=== PATIENT | male | born 1970 | race Caucasian/White ===

== ENCOUNTER 2020-04-04 16:36 | Emergency (ER) | payer OTHER ==
[~2020-04-04] VITALS: Ht 182.9 cm; Wt 143.3 kg
[2020-04-04 17:57] LABS: BASOPHILS ABSOLUTE AUTO 0.07 K/mm3 (0.00-0.23); BASOPHILS PERCENT AUTO 1 % (0-2); EOSINOPHILS ABSOLUTE AUTO 0.42 K/mm3 (0.00-0.68); EOSINOPHILS PERCENT AUTO 4 % (0-6); Hematocrit 41.3 % (37.0-53.0); Hemoglobin 13.8 g/dL (13.5-17.5); IMMATURE GRAN ABSOLUTE AUTO 0.03 K/mm3 (0.00-0.10); IMMATURE GRAN PERCENT AUTO 0 % (0-1); LYMPHOCYTES ABSOLUTE AUTO 2.24 K/mm3 (0.84-5.20); LYMPHOCYTES PERCENT AUTO 20 % (21-46); MONOCYTES ABSOLUTE AUTO 0.62 K/mm3 (0.16-1.47); MONOCYTES PERCENT AUTO 6 % (4-13); Mean Corpuscular HGB Conc 33.4 g/dL (31.5-36.5); Mean Corpuscular Volume 87 fL (80-100); Mean Platelet Volume 8.1 fL (9.1-12.4); NEUTROPHILS ABSOLUTE AUTO 7.67 K/mm3 (1.96-9.15); NEUTROPHILS PERCENT AUTO 69 % (41-73); Platelet Count 567 K/mm3 (150-400); RDW Coefficient Variation 13.1 % (11.7-14.2); RDW Standard Deviation 41.1 fL (35.1-46.3); Red Blood Cell Count 4.76 M/mm3 (4.30-5.90); White Blood Cell Count 11.05 K/mm3 (4.00-11.30)
[2020-04-04 18:19] LABS: Alanine Aminotransfer (ALT/SGP 28 U/L (12-78); Albumin, Blood 3.6 g/dL (3.4-5.0); Albumin/Globulin Ratio 0.7 (0.8-1.8); Alk Phos 84 U/L (50-136); Anion Gap 7 mmol/L (6-16); Aspartate Aminotrans (AST/SGOT 15 U/L (12-37); Bilirubin, Total 0.3 mg/dL (0.1-1.0); Blood Urea Nitrogen 20 mg/dL (8-24); Bun/Creatinine Ratio 23.2 (12.0-20.0); CO2, Blood 26 mmol/L (21-32); Chloride, Blood 103 mmol/L (98-108); Creatinine, Blood 0.86 mg/dL (0.60-1.20); Globulin, Blood 5.5 g/dL (2.2-4.0); Glomerular Filtration Rate >60 (60-); Glucose, Blood 170 mg/dL (70-99); Potassium, Blood 4.3 mmol/L (3.5-5.5); Sodium, Blood 136 mmol/L (136-145); Total Protein, Blood 9.1 g/dL (6.4-8.2)
[2020-04-04] MEDS ORDERED: CEPH500 PO (23:49)
[2020-04-04] MEDS ORDERED: METF500 PO (23:51)
[2020-04-04] MEDS ORDERED: BASAGLAR K100 UNIT/1 SC (23:52)
[2020-04-05] MEDS ORDERED: LORA10ER PO (17:20)
[2020-04-05] MEDS ORDERED: FARXIGA5 MG PO (17:21)
[2020-04-05] MEDS ORDERED: Prinivil10 MG (17:21)
[2020-04-05] MEDS ORDERED: Flonase 0.05% N16 GM (17:21)
[2020-04-05] MEDS ORDERED: BUPR150ER PO (17:22)
[2020-04-05] MEDS ORDERED: MONTELUKAST SOD10 MG PO (17:23)
[2020-04-05] MEDS ORDERED: ROSU5 PO (17:24)
[2020-04-05] MEDS ORDERED: TERB250 PO (17:24)
== END 2020-04-05 02:27 | disposition home or self-care (01) ==
LOC: ER 16:36
PROVIDERS: Physician Assistant
DX: L03.115 Cellulitis of right lower limb (principal); E11.9 Type 2 diabetes mellitus without complications; Z79.4 Long term (current) use of insulin
CPT/HCPCS: 80053; 85025; 96365; 96366; 99283; J3370; J7050

== ENCOUNTER 2020-04-05 12:28 | Day surgery (SDC) | payer OTHER ==
[~2020-04-05] VITALS: Ht 182.9 cm; Wt 143.9 kg
[~2020-04-05 12:28] MED LIST: BASAGLAR K100 UNIT/1 SC; CEPH500 PO; METF500 PO
[2020-04-05] MEDS ORDERED: LORA10ER PO (17:20)
[2020-04-05] MEDS ORDERED: FARXIGA5 MG PO (17:21)
[2020-04-05] MEDS ORDERED: Prinivil10 MG (17:21)
[2020-04-05] MEDS ORDERED: Flonase 0.05% N16 GM (17:21)
[2020-04-05] MEDS ORDERED: BUPR150ER PO (17:22)
[2020-04-05] MEDS ORDERED: MONTELUKAST SOD10 MG PO (17:23)
[2020-04-05] MEDS ORDERED: ROSU5 PO (17:24)
[2020-04-05] MEDS ORDERED: TERB250 PO (17:24)
== END 2020-04-05 19:16 | disposition home or self-care (01) ==
LOC: ATC 12:28
DX: L03.115 Cellulitis of right lower limb (principal); E11.9 Type 2 diabetes mellitus without complications; E66.9 Obesity, unspecified; Z68.41 Body mass index [BMI] 40.0-44.9, adult; Z79.4 Long term (current) use of insulin
CPT/HCPCS: 96365; 96366; J3370; J7050

== ENCOUNTER 2020-04-06 00:09 | Day surgery (SDC) | payer OTHER ==
[~2020-04-06 00:09] MED LIST changes: +BUPR150ER PO; +FARXIGA5 MG PO; +Flonase 0.05% N16 GM; +LORA10ER PO; +MONTELUKAST SOD10 MG PO; +Prinivil10 MG; +ROSU5 PO; +TERB250 PO
== END 2020-04-06 18:59 | disposition home or self-care (01) ==
LOC: ATC 00:09
DX: L03.115 Cellulitis of right lower limb (principal); E11.9 Type 2 diabetes mellitus without complications; Z79.84 Long term (current) use of oral hypoglycemic drugs; Z79.4 Long term (current) use of insulin
CPT/HCPCS: 96365; 96366; C1751; J3370; J7050

== ENCOUNTER 2020-04-07 00:53 | Day surgery (SDC) | payer OTHER ==
[2020-04-07 09:21] LABS: Creatinine, Blood 0.69 mg/dL (0.60-1.20); Vancomycin, Trough 8.2 ug/mL (5.0-10.0)
== END 2020-04-07 18:55 | disposition home or self-care (01) ==
LOC: ATC 00:53
PROVIDERS: Physician Assistant
DX: L03.115 Cellulitis of right lower limb (principal); E11.9 Type 2 diabetes mellitus without complications; Z79.4 Long term (current) use of insulin
CPT/HCPCS: 80202; 82565; 96365; 96366; J3370; J7050

== ENCOUNTER 2020-04-08 08:54 | Day surgery (SDC) | payer OTHER | END 2020-04-08 18:48 | disposition home or self-care (01) | LOC: ATC 08:54 | DX: L03.115 Cellulitis of right lower limb (principal); E11.9 Type 2 diabetes mellitus without complications; E66.9 Obesity, unspecified; Z79.4 Long term (current) use of insulin; Z68.41 Body mass index [BMI] 40.0-44.9, adult | CPT/HCPCS: 96365; 96366; J3370; J7050 ==

== ENCOUNTER 2020-04-09 00:26 | Day surgery (SDC) | payer OTHER | END 2020-04-09 18:45 | disposition home or self-care (01) | LOC: ATC 00:26 | DX: L03.115 Cellulitis of right lower limb (principal); E11.9 Type 2 diabetes mellitus without complications; Z79.84 Long term (current) use of oral hypoglycemic drugs | CPT/HCPCS: 96365; 96366; J3370; J7050 ==

== ENCOUNTER 2020-04-10 00:16 | Day surgery (SDC) | payer OTHER ==
[2020-04-10 09:29] LABS: Creatinine, Blood 0.76 mg/dL (0.60-1.20); Vancomycin, Trough 9.5 ug/mL (5.0-10.0)
== END 2020-04-10 19:03 | disposition home or self-care (01) ==
LOC: ATC 00:16
PROVIDERS: Physician Assistant
DX: L03.115 Cellulitis of right lower limb (principal); E11.9 Type 2 diabetes mellitus without complications; E66.9 Obesity, unspecified; Z68.41 Body mass index [BMI] 40.0-44.9, adult; Z79.84 Long term (current) use of oral hypoglycemic drugs
CPT/HCPCS: 80202; 82565; 96365; 96366

== ENCOUNTER 2020-04-11 00:39 | Day surgery (SDC) | payer OTHER | END 2020-04-11 18:45 | disposition home or self-care (01) | LOC: ATC 00:39 | DX: L03.115 Cellulitis of right lower limb (principal); E11.9 Type 2 diabetes mellitus without complications; Z97.4 Presence of external hearing-aid | CPT/HCPCS: 96365; 96366; J3370; J7050 ==

== ENCOUNTER 2020-04-12 08:00 | Day surgery (SDC) | payer OTHER | END 2020-04-12 19:05 | disposition home or self-care (01) | LOC: ATC 08:00 | DX: L03.115 Cellulitis of right lower limb (principal); E11.9 Type 2 diabetes mellitus without complications; Z79.4 Long term (current) use of insulin | CPT/HCPCS: 96365; 96366; J3370; J7050 ==

== ENCOUNTER 2020-04-13 00:02 | Day surgery (SDC) | payer OTHER ==
--- NOTE | 2020-04-13 19:12 | NUR ---
LEFT ARM APPEARS LESS RED. PT ADVISED TO CONTINUE TO MONITOR AND SEEK MEDICAL ATTENTION IS WORSENS OR SWELLING IN ARMS DEVELOPS. PT SCHEDULED TO SEE DOCTOR TOMORROW.
== END 2020-04-13 19:17 | disposition home or self-care (01) ==
LOC: ATC 00:02
DX: L03.115 Cellulitis of right lower limb (principal); E11.9 Type 2 diabetes mellitus without complications; Z79.4 Long term (current) use of insulin; Z79.899 Other long term (current) drug therapy
CPT/HCPCS: 96365; 96366; J3370; J7050

== ENCOUNTER 2020-04-14 00:35 | Day surgery (SDC) | payer OTHER ==
--- NOTE | 2020-04-14 10:29 | NUR ---
REDNESS TO LEFT ARM LESSENED IN COLOR, AREA REMAINS THE SAME SIZE APPOX [id number]. SOME FIRMNESS NOTED TO TOUCH. PT STAOSMAN STILL HAS SOME TENDERNESS TO AREA. PT TO SEE HIS DOCTOR TODAY AT NOON.
== END 2020-04-14 19:07 | disposition home or self-care (01) ==
LOC: ATC 00:35
DX: L03.115 Cellulitis of right lower limb (principal); E11.9 Type 2 diabetes mellitus without complications; Z79.4 Long term (current) use of insulin; Z79.899 Other long term (current) drug therapy
CPT/HCPCS: 96365; 96366; J3370; J7050

== ENCOUNTER 2020-04-15 00:27 | Day surgery (SDC) | payer OTHER ==
[2020-04-15 09:40] LABS: Creatinine, Blood 0.75 mg/dL (0.60-1.20); Vancomycin, Trough 10.1 ug/mL (5.0-10.0)
--- NOTE | 2020-04-15 09:46 | NUR ---
REVIEWED VANCO TROUGH AND CREATININE RESULTS WITH [facility] IN PHARMACY. OK TO GIVE VANCO DOSE
--- NOTE | 2020-04-15 09:49 | NUR ---
LABS DRAWN USING 22 GUAGE BUTTERFLY NEEDLE TO RIGHT AC.
--- NOTE | 2020-04-15 11:34 | NUR ---
IV SITE TO RIGHT FOREARM WRAPPED WITH 2X2'S, COBAN, AND NETTING FOR USE TONIGHT
== END 2020-04-15 18:49 | disposition home or self-care (01) ==
LOC: ATC 00:27
PROVIDERS: Family Medicine
DX: L03.115 Cellulitis of right lower limb (principal); E11.9 Type 2 diabetes mellitus without complications; Z79.4 Long term (current) use of insulin
CPT/HCPCS: 80202; 82565; 96365; 96366; J3370; J7050

== ENCOUNTER 2020-04-16 00:10 | Day surgery (SDC) | payer OTHER ==
--- NOTE | 2020-04-16 10:56 | NUR ---
IV SITE TO LFA WRAPPED WITH 2X2'S, COBAN, AND NETTING FOR USE JV
--- NOTE | 2020-04-16 18:48 | NUR ---
IV SITE TO LEFT FOREARM WRAPPED WITH 2X2'S, COBAN, AND NETTING FOR INFUSION TOMORROW
== END 2020-04-16 18:49 | disposition home or self-care (01) ==
LOC: ATC 00:10
DX: L03.115 Cellulitis of right lower limb (principal); E11.9 Type 2 diabetes mellitus without complications; Z79.4 Long term (current) use of insulin
CPT/HCPCS: 96365; 96366; J3370; J7050

== ENCOUNTER 2020-04-17 01:11 | Day surgery (SDC) | payer OTHER | END 2020-04-17 19:05 | disposition home or self-care (01) | LOC: ATC 01:11 | DX: L03.115 Cellulitis of right lower limb (principal) | CPT/HCPCS: 96365; 96366; J3370; J7050 ==

== ENCOUNTER 2020-04-18 00:08 | Day surgery (SDC) | payer OTHER ==
--- NOTE | 2020-04-18 09:30 | NUR ---
VANCO TROUGH AND SERUM CREATININE DRAWN FROM 23 G BUTTERFLY NEEDLE TO RIGHT HAND
[2020-04-18 10:13] LABS: Creatinine, Blood 0.73 mg/dL (0.60-1.20); Vancomycin, Trough 8.3 ug/mL (5.0-10.0)
== END 2020-04-18 18:46 | disposition home or self-care (01) ==
LOC: ATC 00:08
PROVIDERS: Physician Assistant
DX: L03.115 Cellulitis of right lower limb (principal); E11.9 Type 2 diabetes mellitus without complications; Z79.4 Long term (current) use of insulin
CPT/HCPCS: 80202; 82565; 96365; 96366; A9270; J3370; J7050

== ENCOUNTER 2020-04-19 00:03 | Day surgery (SDC) | payer OTHER | END 2020-04-19 18:40 | disposition home or self-care (01) | LOC: ATC 00:03 | DX: L03.115 Cellulitis of right lower limb (principal); E11.9 Type 2 diabetes mellitus without complications; Z79.4 Long term (current) use of insulin | CPT/HCPCS: 96365; 96366; J3370; J7050 ==

== ENCOUNTER 2020-04-20 00:03 | Day surgery (SDC) | payer OTHER ==
--- NOTE | 2020-04-20 17:02 | NUR ---
PTS R WRIST AREA VERY RED AND SWOLLEN. PT C/O PAIN WHEN IV IS WRAPPED FOR NEXT DOSE. ENC PT TO USE HOT/COLD COMPRESSES AT HOME.
== END 2020-04-20 18:41 | disposition home or self-care (01) ==
LOC: ATC 00:03
DX: L03.115 Cellulitis of right lower limb (principal); E11.9 Type 2 diabetes mellitus without complications; Z79.4 Long term (current) use of insulin
CPT/HCPCS: 96365; 96366; J3370; J7050

== ENCOUNTER 2020-04-21 00:37 | Day surgery (SDC) | payer OTHER ==
[2020-04-21 09:21] LABS: Vancomycin, Trough 9.8 ug/mL (5.0-10.0)
== END 2020-04-21 18:45 | disposition home or self-care (01) ==
LOC: ATC 00:37
PROVIDERS: Family Medicine
DX: L03.115 Cellulitis of right lower limb (principal); E11.9 Type 2 diabetes mellitus without complications; Z79.4 Long term (current) use of insulin
CPT/HCPCS: 80202; 82565; 96365; 96366; J3370; J7050

== ENCOUNTER 2020-04-22 08:30 | Day surgery (SDC) | payer OTHER | END 2020-04-22 18:28 | disposition home or self-care (01) | LOC: ATC 08:30 | DX: L03.115 Cellulitis of right lower limb (principal); E11.9 Type 2 diabetes mellitus without complications; Z79.4 Long term (current) use of insulin | CPT/HCPCS: 96365; 96366; J3370; J7050 ==

== ENCOUNTER 2020-04-23 03:09 | Day surgery (SDC) | payer OTHER | END 2020-04-23 18:41 | disposition home or self-care (01) | LOC: ATC 03:09 | DX: L03.115 Cellulitis of right lower limb (principal); E11.9 Type 2 diabetes mellitus without complications; Z79.4 Long term (current) use of insulin | CPT/HCPCS: 96365; 96366; J3370; J7050 ==

== ENCOUNTER 2021-04-19 10:42 | Day surgery (SDC) | payer OTHER ==
[~2021-04-19] VITALS: Ht 182.9 cm; Wt 146.2 kg
[~2021-04-19 10:42] MED LIST changes: +GLIP5 PO
== END 2021-04-19 13:23 | disposition home or self-care (01) ==
LOC: ORSCSDS 10:42
PROVIDERS: Student in an Organized Health Care Education/Training Program
PROC: 0DBK8ZX Excision of Ascending Colon, Via Natural or Artificial Opening Endoscopic, Diagnostic (ICD-10-PCS; principal; 2021-04-19 12:00)
PROC: 0DBL8ZX Excision of Transverse Colon, Via Natural or Artificial Opening Endoscopic, Diagnostic (ICD-10-PCS; principal; 2021-04-19 12:00)
DX: Z12.11 Encounter for screening for malignant neoplasm of colon (principal); D12.3 Benign neoplasm of transverse colon; D12.2 Benign neoplasm of ascending colon; I10 Essential (primary) hypertension; E11.9 Type 2 diabetes mellitus without complications; G47.33 Obstructive sleep apnea (adult) (pediatric); Z79.84 Long term (current) use of oral hypoglycemic drugs; Z79.899 Other long term (current) drug therapy; E66.01 Morbid (severe) obesity due to excess calories; Z68.41 Body mass index [BMI] 40.0-44.9, adult
CPT/HCPCS: 82947; 88305; J2704; J7120